=== PATIENT | female | born 1985 | race African-American/Black ===

== ENCOUNTER 2017-07-18 07:52 | Emergency (ER) | payer OTHER ==
[~2017-07-18] VITALS: Ht 162.6 cm; Wt 113.2 kg
[2017-07-18 11:30] VITALS: BP 142/87
== END 2017-07-18 11:38 | disposition home or self-care (01) ==
LOC: EME 07:52
DX: L50.0 Allergic urticaria (principal); T78.40XA Allergy, unspecified, initial encounter
CPT/HCPCS: 99281; 99285; J1200; J2930; S0028

== ENCOUNTER 2017-07-20 09:24 | Emergency (ER) | payer OTHER ==
[~2017-07-20] VITALS: Ht 162.6 cm; Wt 113.9 kg
[2017-07-20] MEDS ORDERED: PREDNISONE50 MG PO (13:16)
[2017-07-20] MEDS ORDERED: PROVENTIL HFA6.7 GM IH (13:16)
[2017-07-20 14:45] VITALS: BP 155/106
== END 2017-07-20 15:00 | disposition home or self-care (01) ==
LOC: EME 09:24
DX: T78.40XA Allergy, unspecified, initial encounter (principal); Z91.018 Allergy to other foods; R00.0 Tachycardia, unspecified; R94.31 Abnormal electrocardiogram [ECG] [EKG]; Z90.49 Acquired absence of other specified parts of digestive tract
CPT/HCPCS: 93005; 94640; 94664; 99281; 99285; J1200; J2930; S0028